=== PATIENT | female | born 1935 ===

== ENCOUNTER 2017-02-03 07:32 | Day surgery (SDC) | payer MEDICARE, MEDICAID ==
[2017-01-29 07:13] VITALS: BMI 33.8
[~2017-02-03 07:32] MED LIST: Ciprofloxacin 0.3% OPTH SOLN OD SCH; Cyclopentolate 1% Opth (2 ml) OD SCH; Flurbiprofen 0.03% Opht SOLN OD SCH; Lactated Ringer's 500 ML IV ONE; Phenylephrine 2.5% Opht Soln OD SCH; Tropicamide 1% Opht SOLUTION OD SCH
[2017-02-03] MEDS ORDERED: Propofol 10 mg/ml Inj (20 ML) ONE (10:50)
[2017-02-03] MEDS ORDERED: Lactated Ringer's 500 ML IV ONE (10:52)
[2017-02-03] MEDS ORDERED: Tobramycin/Dexamethasone (Tobradex) Opth Sol (2.5 ml) ONE (11:12)
[2017-02-03] MEDS ORDERED: Carbachol 0.01% IO ONE (11:12)
[2017-02-03] MEDS ORDERED: Tetracaine 0.5% Ophth (OR ONLY) ONE (11:12)
[2017-02-03] MEDS ORDERED: Tobramycin/Dexamethasone OPHT OINT ONE (11:12)
[2017-02-03] MEDS ORDERED: Povidone Iodine Ophthalmic 5% Soln ONE (11:12)
[2017-02-03] MEDS ORDERED: Hyaluronidase Human, Recombi 150 U/ML VIAL ONE (11:13)
[2017-02-03] MEDS ORDERED: Chondroitin/Hyaluronate Opth Syringe KIT (0.55 ml-0.5 ml) IO ONE (11:13)
[2017-02-03 12:00] VITALS: TEMP 97
[2017-02-03 12:57] VITALS: BP 110/53; PULSE 53; RESP 18; O2SAT 100
--- NOTE | 2017-02-06 16:04 | OP ---
PROCEDURE DATE: 02/03/2017 PREOPERATIVE DIAGNOSIS: MATURE CATARACT, RIGHT EYE. POSTOPERATIVE DIAGNOSIS: MATURE CATARACT, RIGHT EYE. OPERATIVE PROCEDURE: CATARACT EXTRACTION WITH IMPLANT AND USE OF TRYPAN BLUE DYE, RIGHT EYE. ANESTHESIA TYPE: LOCAL, STAND-BY. ANESTHESIOLOGIST: COMPLICATIONS: NONE. PROCEDURE: Local anesthesia was achieved using a mixture of 1% lidocaine and Amphadase. The patient was then prepped and draped in the usual sterile fashion for ophthalmic surgery. Betadin e drops were placed into the eye. A lid speculum was used and a sideport incision was made using a 1 5 degree blade. Trypan blue dye was used to stain the anterior capsule. Viscoelastic was used to fi ll the anterior chamber and a 2.7 millimeter slit blade was used to create a surgical opening. Addit ional viscoelastic was placed into the eye and a capsulorrhexis was performed. Hydrodissection and de lineation were then carried out. Phacoemulsification of the nucleus was performed with ease and breana ical cleanup was achieved without difficulty. The capsular bag was refilled using viscoelastic and a posterior chamber lens was inserted through the existing wound and placed into the capsular bag and easily centered. All viscoelastic was then aspirated from the eye and Miochol was instilled for good symmetric pupilla ry constriction. The sideport wound was hydrated as necessary and a good watertight closure was obse rved at the conclusion of the case. A TobraDex soaked collagen shield was then placed over the eye. The lid speculum was removed. TobraDex ointment was placed onto the eye and a patch and shield were placed. The patient tolerated the procedure well. Felipe Montgomery MD cc: [id number] TT: 02/06/2017 16:03:55 tn
== END 2017-02-03 12:58 | disposition home or self-care (01) ==
LOC: C.SDS 07:32
PROVIDERS: ATTEND Ophthalmology
DX: H25.9 Unspecified age-related cataract (principal); Z86.73 Personal history of transient ischemic attack (TIA), and cerebral infarction without residual deficits
CPT/HCPCS: 66984; C1780; J2704; J3470; J7120